=== PATIENT | male | born 1960 | race Caucasian/White ===

== ENCOUNTER 2016-06-04 11:02 | Emergency (ER) | payer BC ==
[2016-06-04 11:22] VITALS: BP 133/96
--- NOTE | 2016-06-04 11:34 | EDM.PDOC ---
ED HISTORY OF PRESENT ILLNESS - General Chief Complaint: Respiratory Problem Stated Complaint: COLD Time Seen by Provider: 06/04/16 11:06 Source of Information: Reports: Patient - History of Present Illness INITIAL COMMENTS - FREE TEXT/NARRATIVE: History of present illness: [] Patient's had one week of cold symptoms with runny nose. He denies any fevers , chills, shortness of breath or chest pain. He is requesting some amoxicillin for his cold. Patient has never seen a doctor and states that he is healthy. Review of systems: As per history of present illness and below otherwise all systems reviewed and negative. Past medical history: As per history of present illness and as reviewed below otherwise noncontributory. Surgical history: As per history of present illness and as reviewed below otherwise noncontributory. Social history: No reported history of drug or alcohol abuse. Family history: As per history of present illness and as reviewed below otherwise noncontributory. Physical exam: General: Well developed, well nourished in NAD HEENT: Atraumatic, normocephalic, pupils reactive, negative for conjunctival pallor or scleral icterus, mucous membranes moist, throat clear, no exudate, neck supple, no adenopathy, nontender, trachea midline. No sinus tenderness to palpation Lungs: Clear to auscultation, breath sounds equal bilaterally, chest nontender. No wheezing or rhonchi Heart: S1S2, regular, negative for clicks, rubs, or JVD. Abdomen: Soft, nondistended, nontender. Negative for masses or hepatosplenomegaly. Negative for costovertebral tenderness. Pelvis: Stable nontender. Genitourinary: Deferred. Rectal: Deferred. Extremities: Atraumatic, negative for cords or calf pain. Neurovascular unremarkable. Neuro: Awake, alert, oriented. Cranial nerves II through XII unremarkable. Cerebellum unremarkable. Motor and sensory unremarkable throughout. Exam nonfocal. Diagnostics: [] Signs stable Therapeutics: [] Impression: [] Viral URI Plan: [] OTC decongestants, Flonase or Nasacort for nasal drainage followup PMD Definitive disposition and diagnosis as appropriate pending reevaluation and review of above. - Related Data Allergies/ADRs: Allergies Allergy/AdvReac Type Severity Reaction Status Date / Time No Known Allergies Allergy Verified 06/04/16 11:18 Home Meds: Home Meds . [No Known Home Meds] 06/04/16 [History] ED ROS GENERAL - Review of Systems Review Of Systems: See Below (See history of present illness) ED EXAM, GENERAL - Physical Exam Exam: See Below (See history of present illness) Course - Vital Signs Last Recorded V/S: Last Vital Signs Temp 36.4 C 06/04/16 11:19 Pulse 76 06/04/16 11:19 Resp 16 06/04/16 11:19 BP 133/96 H 06/04/16 11:19 Pulse Ox 96 06/04/16 11:19 Departure - Departure Time of Disposition: : Disposition: Home, Self-Care 01 Condition: good Clinical Impression: Viral URI Forms: ED Department Discharge Additional Instructions: The following information is given to patients seen in the emergency department who are being discharged to home. This information is to outline your options for follow-up care. We provide all patients seen in our emergency department with a follow-up referral. The need for follow-up, as well as the timing and circumstances, are variable depending upon the specifics of your emergency department visit. If you don't have a primary care physician on staff, we will provide you with a referral. We always advise you to contact your personal physician following an emergency department visit to inform them of the circumstance of the visit and for follow-up with them and/or the need for any referrals to a consulting specialist. The emergency department will also refer you to a specialist when appropriate. This referral assures that you have the opportunity for follow-up care with a specialist. All of these measure are taken in an effort to provide you with optimal care, which includes your follow-up. Under all circumstances we always encourage you to contact your private physician who remains a resource for coordinating your care. When calling for follow-up care, please make the office aware that this follow-up is from your recent emergency room visit. If for any reason you are refused follow-up, please contact the [facility] at and asked to speak to the emergency department charge nurse. [id number] decongestants and/or Flonase Follow up with regular physician [facility] [address] [place] [phone]
== END 2016-06-04 11:33 | disposition home or self-care (01) ==
LOC: MW.ED 11:02
DX: J06.9 Acute upper respiratory infection, unspecified (principal); B97.89 Other viral agents as the cause of diseases classified elsewhere
CPT/HCPCS: 99282; 99283

== ENCOUNTER 2017-07-02 13:12 | Emergency (ER) | payer SELFPAY ==
[2017-07-02 13:29] VITALS: BP 169/89
--- NOTE | 2017-07-02 13:44 | EDM.PDOC ---
ED HPI GENERAL MEDICAL PROBLEM - General Chief Complaint: Respiratory Problem Stated Complaint: COLD Time Seen by Provider: 07/02/17 13:16 Source of Information: Reports: Patient History Limitations: Reports: No Limitations - History of Present Illness INITIAL COMMENTS - FREE TEXT/NARRATIVE: HISTORY AND PHYSICAL: History of present illness: Patient is a 56-year-old male who presents to the emergency room with complaints of chest congestion, dry cough 1 week. He states he has used over- the-counter Mucinex without any relief. He is concerned he has bronchitis or pneumonia. Presents today because he has "a busy week ahead of me" and would like some antibiotics. He history of smoking. Denies any history of lung illnesses or diseases. No recent antibiotic use. Patient denies any chest pain, shortness of breath, fever or chills. Denies any abdominal pain, nausea, vomiting, diarrhea or constipation. Review of systems: As per history of present illness and below otherwise all systems reviewed and negative. Past medical history: As per history of present illness and as reviewed below otherwise noncontributory. Surgical history: As per history of present illness and as reviewed below otherwise noncontributory. Social history: No reported history of drug or alcohol abuse. Family history: As per history of present illness and as reviewed below otherwise noncontributory. Physical exam: General: Developed and well-nourished 56-year-old male. Alert and oriented. Nontoxic appearing and in no acute distress. HEENT: Atraumatic, normocephalic, pupils equal and reactive bilaterally, negative for conjunctival pallor or scleral icterus, mucous membranes moist, throat clear, neck supple, nontender, trachea midline. No drooling or trismus noted. No meningeal signs Lungs: Fine expiratory wheezing noted to bilateral posterior bases with poor air exchange, breath sounds equal bilaterally, chest nontender. Dry cough noted. Heart: S1S2, regular rate and rhythm without overt murmur Abdomen: Soft, nondistended, nontender. Negative for masses or hepatosplenomegaly. Negative for costovertebral tenderness. Pelvis: Stable nontender. Genitourinary: Deferred. Rectal: Deferred. Skin: Intact, warm, dry. No lesions or rashes noted. Extremities: Atraumatic, negative for cords or calf pain. Neurovascular unremarkable. Neuro: Awake, alert, oriented. Cranial nerves II through XII unremarkable. Cerebellum unremarkable. Motor and sensory unremarkable throughout. Exam nonfocal. Notes: Did offer the patient to do a chest x-ray, he declined. I do believe this gentleman would benefit from antibiotics. Z-Kevan, Medrol Dosepak, Ventolin inhaler given. Encourage patient to follow-up with his primary care provider if he did not feel improvement. He voices understanding and is agreeable to plan of care. He denies any questions at this time. Diagnostics: [] Therapeutics: [] Impression: Acute bronchitis Plan: 1. Please take the antibiotic as prescribed. Medrol dosepak and Ventolin inhaler as directed. 2. Tylenol and/or ibuprofen as needed for pain and fever management. You may use [id number] cough and cold products as desired. 3. Follow-up with your primary care provider in the next 2-3 days. Return to the ED as needed and as discussed. Definitive disposition and diagnosis as appropriate pending reevaluation and review of above. Duration: Week(s): Location: Reports: Chest - Related Data Allergies Allergy/AdvReac Type Severity Reaction Status Date / Time No Known Allergies Allergy Verified 07/02/17 13:28 Home Meds: Home Meds . [No Known Home Meds] 06/04/16 [History] Past Medical History - Past Health History Medical/Surgical History: Denies Medical/Surgical History Social & Family History - Family History Family Medical History: Noncontributory - Tobacco Use Smoking Status *Q: Never Smoker - Recreational Drug Use Recreational Drug Use: No ED ROS GENERAL - Review of Systems Review Of Systems: ROS reveals no pertinent complaints other than HPI. ED EXAM, GENERAL - Physical Exam Exam: See Below Course - Vital Signs Last Recorded V/S: Last Vital Signs Temp 98.2 F 07/02/17 13:27 Pulse 98 07/02/17 13:27 Resp 18 07/02/17 13:27 BP 169/89 H 07/02/17 13:27 Pulse Ox 94 L 07/02/17 13:27 Departure - Departure Time of Disposition: 13:43 Disposition: Home, Self-Care 01 Clinical Impression: Acute bronchiolitis - Discharge Information Referrals: PCP,None [Primary Care Provider] - Forms: ED Department Discharge Additional Instructions: The following information is given to patients seen in the emergency department who are being discharged to home. This information is to outline your options for follow-up care. We provide all patients seen in our emergency department with a follow-up referral. The need for follow-up, as well as the timing and circumstances, are variable depending upon the specifics of your emergency department visit. If you don't have a primary care physician on staff, we will provide you with a referral. We always advise you to contact your personal physician following an emergency department visit to inform them of the circumstance of the visit and for follow-up with them and/or the need for any referrals to a consulting specialist. The emergency department will also refer you to a specialist when appropriate. This referral assures that you have the opportunity for follow-up care with a specialist. All of these measure are taken in an effort to provide you with optimal care, which includes your follow-up. Under all circumstances we always encourage you to contact your private physician who remains a resource for coordinating your care. When calling for follow-up care, please make the office aware that this follow-up is from your recent emergency room visit. If for any reason you are refused follow-up, please contact the [facility] Emergency Department at and asked to speak to the emergency department charge nurse. [facility] [address] [place] [phone] 1. Please take the antibiotic as prescribed. Medrol dosepak and Ventolin inhaler as directed. 2. Tylenol and/or ibuprofen as needed for pain and fever management. You may use [id number] cough and cold products as desired. 3. Follow-up with your primary care provider in the next 2-3 days. Return to the ED as needed and as discussed.
== END 2017-07-02 13:54 | disposition home or self-care (01) ==
LOC: MW.ED 13:12
DX: J20.9 Acute bronchitis, unspecified (principal); J21.9 Acute bronchiolitis, unspecified
CPT/HCPCS: 99283